=== PATIENT | female | born 1965 | race Hispanic/Latino ===

== ENCOUNTER 2019-05-31 22:38 | Emergency (ER) | payer SELFPAY ==
[2019-05-31 23:54] LABS: BASOPHILS % (AUTO) 0.3 % (0.0-5.0); EOSINOPHILS % (AUTO) 0.3 % (0.0-8.0); HEMATOCRIT 47.1 % (36-48); LYMPHOCYTES % (AUTO) 15.6 % (21.0-51.0); MEAN CORPUSCULAR HEMOGLOBIN 31.7 pg (27.0-33.0); MEAN CORPUSCULAR HGB CONC 34.1 g/dL (32.0-36.0); MEAN CORPUSCULAR VOLUME 92.9 fL (79-99); NEUTROPHILS % (AUTO) 74.8 % (40.0-77.0); NUCLEATED RED BLOOD CELLS 0.1 % (0.0-0.19); PLATELET COUNT (AUTO) 371 K/uL (130-400); RED BLOOD CELL COUNT(AUTO) 5.06 MIL/uL (4.00-5.50); RED CELL DISTRIBUTION WIDTH 12.7 % (11.0-15.5); WHITE BLOOD COUNT (AUTO) 12.9 K/uL (4.8-10.8)
[2019-06-01 00:01] LABS: CREATININE 0.9 mg/dL (0.5-1.5); POTASSIUM 3.7 mmol/L (3.5-5.1)
[2019-06-01 00:03] LABS: INR 1.28 (0.85-1.15); PARTIAL THROMBOPLASTIN TIME 34.5 SEC (26.3-35.5); PROTHROMBIN TIME 13.4 SEC (9.6-11.6)
[2019-06-01 00:07] LABS: ALBUMIN 3.8 g/dL (3.5-5.0); BILIRUBIN,DIRECT 0.2 mg/dL (0.0-0.3); BILIRUBIN,TOTAL 0.6 mg/dL (0.2-1.0); TOTAL PROTEIN, SERUM 8.8 g/dL (6.0-8.3)
[2019-06-01] MEDS ORDERED: SODIUM CHLORIDE 0.9% 1000ML 1,000 ML IV ONE (00:31)
== END 2019-06-01 01:35 | disposition home or self-care (01) ==
LOC: EDH 22:38
DX: N95.0 Postmenopausal bleeding (principal); F41.1 Generalized anxiety disorder; I10 Essential (primary) hypertension; L40.9 Psoriasis, unspecified; Z98.890 Other specified postprocedural states
CPT/HCPCS: 36415; 80048; 80076; 85025; 85610; 85730; 99284; J7030

== ENCOUNTER 2019-06-02 22:20 | Observation (INO) | payer SELFPAY ==
[~2019-06-02] VITALS: Ht 162.6 cm; Wt 104.3 kg
[2019-06-02 23:27] LABS: BASOPHILS % (AUTO) 0.6 % (0.0-5.0); EOSINOPHILS % (AUTO) 0.6 % (0.0-8.0); HEMATOCRIT 44.9 % (36-48); LYMPHOCYTES % (AUTO) 18.5 % (21.0-51.0); MEAN CORPUSCULAR HEMOGLOBIN 31.9 pg (27.0-33.0); MEAN CORPUSCULAR HGB CONC 34.4 g/dL (32.0-36.0); MEAN CORPUSCULAR VOLUME 92.7 fL (79-99); MONOCYTES % (AUTO) 9.1 % (3.0-13.0); NEUTROPHILS % (AUTO) 71.2 % (40.0-77.0); PLATELET COUNT (AUTO) 342 K/uL (130-400); RED BLOOD CELL COUNT(AUTO) 4.84 MIL/uL (4.00-5.50); RED CELL DISTRIBUTION WIDTH 12.5 % (11.0-15.5); WHITE BLOOD COUNT (AUTO) 10.5 K/uL (4.8-10.8)
[2019-06-02 23:34] LABS: CREATININE 0.8 mg/dL (0.5-1.5); POTASSIUM 4.2 mmol/L (3.5-5.1)
[2019-06-02 23:38] LABS: ALBUMIN 3.6 g/dL (3.5-5.0); BILIRUBIN,DIRECT 0.1 mg/dL (0.0-0.3); BILIRUBIN,TOTAL 0.8 mg/dL (0.2-1.0); TOTAL PROTEIN, SERUM 8.5 g/dL (6.0-8.3)
[2019-06-03] VITALS (21 sets, daily range): BP systolic 122–204; BP diastolic 60–118
[2019-06-03 02:19] LABS: APPEARANCE,URINE Cloudy (CLEAR); BILIRUBIN,URINE Small (NEGATIVE); COLOR,URINE Red (YELLOW); GLUCOSE, URINE (UA) Negative (NEGATIVE); KETONES,URINE Negative (NEGATIVE); LEUKOCYTE ESTERASE ,URINE Small (NEGATIVE); NITRATE,URINE Negative (NEGATIVE); OCCULT BLOOD,URINE Large (NEGATIVE); PH,URINE 5.5 (5.0-8.0); PROTEIN,URINE POS 2+ mg/dL (NEGATIVE); UROBILINOGEN,URINE 0.2 mg/dL (0.2-1.0)
[2019-06-03 02:54] LABS: BACTERIA,URINE Rare /HPF (None Seen); SQUAMOUS EPITHELIAL CELL,UR Rare /HPF (0-2)
[2019-06-03] MEDS ORDERED: SODIUM CHLORIDE 0.9% 1000ML 1,000 ML IV SCH (03:45)
[2019-06-03] MEDS ORDERED: SODIUM CHLORIDE 0.9% 1000ML 1,000 ML IV ONE (03:53)
[2019-06-03] MEDS ORDERED: LOSA100T58 PO (10:04)
[2019-06-03] MEDS ORDERED: LACTATED RINGERS 1000ML 1,000 ML IV ONE (12:30)
[2019-06-03] MEDS ORDERED: LIDOCAINE HCL MPF 1% 5ML VIAL ONE (12:50)
[2019-06-03] MEDS ORDERED: MIDAZOLAM HCL 1 MG/ML 2ML VIAL ONE (12:50)
[2019-06-03] MEDS ORDERED: FENTANYL CITRATE PF 50 MCG/1 ML 2ML VIAL ONE (12:51)
[2019-06-03] MEDS ORDERED: PROPOFOL 10 MG/ML 20ML VIAL IV ONE (12:51)
[2019-06-03] MEDS ORDERED: CEFAZOLIN SODIUM 1 GM VIAL ONE (13:07)
[2019-06-03] MEDS ORDERED: ONDANSETRON HCL 4 MG/2 ML VIAL ONE (13:25)
[2019-06-03] MEDS ORDERED: SIMETHICONE 80 MG TAB.CHEW PO PRN (13:45)
[2019-06-03] MEDS ORDERED: DOCUSATE SODIUM 100 MG CAP PO PRN (13:45)
[2019-06-03] MEDS ORDERED: ACETAMINOPHEN-CODEINE 300/30MG TAB PO PRN (13:45)
[2019-06-03] MEDS ORDERED: MEPERIDINE-PF 75 MG/ML SYG IM PRN (13:45)
[2019-06-03] MEDS ORDERED: ONDANSETRON HCL 4 MG/2 ML VIAL IVP PRN (13:45)
[2019-06-03] MEDS ORDERED: BISACODYL 10 MG SUPP.RECT RC PRN (13:45)
[2019-06-03] MEDS ORDERED: PROMETHAZINE HCL 25 MG/ML 1ML AMPULE IM PRN ×2 (13:45)
[2019-06-03] MEDS ORDERED: MEPERIDINE-PF 25 MG/ML SYG ONE ×2 (13:49→14:04)
--- NOTE | 2019-06-03 13:55 | NUR ---
INITIAL MET W PT AND DAUGHTER RICHELLE AND FRIEND AT BEDSIDE- LIVES W DAUGHTER RICHELLE WHO WILL PROVIDE TRANSPORT. WORKS IS INDP IN [place], HAS A WHEELCHAIR THAT SHE BORROWED A WHILE BACK AND LIKES TO SIT IN IN AT HOME- DAUGHTER AND PATIENT DISCUSSED PROS & CONS - DAUGHTER DOS NOT LIKE IT, WANTS PT TO PARTICIPATE MORE IN ACTIVITIES. PT DSIAGREES. PT IS EMPLOYED BUT UNINSURED- AYS OUT OF [facility] FOR PMD IN [place] AND WITH DR. WOODRUFF. WILL PROVIDE [facility]ITY [employer] PKT. Addendum: 06/03/19 at 1359 by MONA DERAS RN CM Amended: Links added.
--- NOTE | 2019-06-03 14:01 | NUR ---
INIITIAL PT KNOWN TO THIS CM FROM PREV ADMIT. PT W AMS, DEMENTIA, FAMILY IN [place]- WHO SIGNS FOR PT TO COME INTO FACLITY? CALL TO HELEN AT [facility] TO ANSWER THAT PROBLEM. AWAITING ANSWER FOR THE PASSR. UNSURE WHETHER THIS PATIENT WILL TRANSION TO STRATEGIC MANAGER CARE Addendum: 06/03/19 at 1403 by MONA DERAS RN CM Amended: Links added. Addendum: 06/03/19 at 1405 by MONA DERAS RN CM WRONG CHART
--- NOTE | 2019-06-03 14:05 | NUR ---
CM NOTE 1401 WRONG CHART
[2019-06-03] MEDS ORDERED: TRANEXAMIC ACID 1,000 MG in SODIUM CHLORIDE 0.9% 100 ML IV SCH (16:45)
[2019-06-03] MEDS ORDERED: PHARMACY COMMUNICATION MISC SCH (16:45)
--- NOTE | 2019-06-03 20:35 | NUR ---
ACTIVITY PATIENT WALKING IN HALLWAY. TOLERATING WELL.
--- NOTE | 2019-06-03 20:40 | NUR ---
informed dr wall of patient concen on bleeding and nervous causing bp to be elevated. new orders given .explained to patient on process of recovery. patient now calm , vital sign stable . will cont to monitor .
[2019-06-03] MEDS: LOSARTAN 100 MG TABLET PO SCH (22:00)
--- NOTE | 2019-06-03 22:10 | NUR ---
NOTE RECEIVED NOTIFICATIO THAT PATIENT IS TO BE MOVED TO [facility] THERE IS ROOM AVAILABILITY NOW. INFORMED PATIENT/FAMILY TO START PREPARING. THEY SAID A SISTER IS ON HER WAY AND WILL BE STAYING WITH HER. WILL GIVE A FEW MINUTES FOR HER TO ARRIVE.
--- NOTE | 2019-06-03 22:28 | NUR ---
NOTE CALLED [facility] TO GIVE REPORT ON PATIENT. NURSE UNAVAILABLE AT THIS TIME. LET EXTENSION NUMBER TO CALL BACK.
--- NOTE | 2019-06-03 22:48 | NUR ---
NOTE RECEIVED RETURN CALL FROM [facility] IN [facility]. REPORT GIVEN. INFORMED THAT PATIENT'S SISTER WILL BE STAYING WITH HER THE NIGHT. CAN WILL BE TAKING PATIENT VIA WHEEL CHAIR TO ROOM 116. INFORMED PATIENT OF ROOM AND NAME OF RECEIVING NURSE.
--- NOTE | 2019-06-03 23:27 | NUR ---
STATUS RECEIVED REPORT FROM ELIZABETH LANGE, PATIENT ARRIVED BY W/C TO ROOM 116 ,A/A/O, DENIES ANY CONCERNS, SL TO RIGHT HAND PATENT, 20 GAUGE Addendum: 06/03/19 at 5521 by YOON HAMLIN LVN Amended: Links added.
--- NOTE | 2019-06-03 23:51 | NUR ---
PATIENT HAS PSORIASIS Addendum: 06/03/19 at 2354 by YOON HAMLIN LVN Amended: Links added.
[2019-06-04] VITALS: BP 108/56
[2019-06-04 03:35] VITALS: BP 137/73
[2019-06-04 07:27] VITALS: BP 133/72
[2019-06-04] MEDS: LOSARTAN 100 MG TABLET PO SCH (08:14)
--- NOTE | 2019-06-04 08:25 | NUR ---
DR. WOODRUFF CALLED AND ORDER OBTAINED TO APPLY CLIMARA PATCH NOW AND THEN IN ONE WEEK. AFTER ASSESSMENT NOTED PATIENT DID NOT HAVE A CLIMARA PATCH AND ORDER READ TO APPLY IN ONE WEEK. CLIMARA PATCH WAS OBTAINED FROM PHARMACY AND WAS PLACED TO RIGH SIDE OF ABDOMEN TO RLQ.
[2019-06-04] MEDS ORDERED: ESTRADIOL 0.1 MG/24 HR PATCH (WEEKLY) TD SCH (08:30)
--- NOTE | 2019-06-04 10:00 | NUR ---
DISCHARGE INSTRUCTIONS GIVEN AND SCRIPT FOR PAIN MANAGEMENT AT HOME GIVEN AND INSTRUCTED ON DOSAGE AND FREQUENCY AT HOME. VERBALIZED UNDERSTANDING INSTRUCTIONS GIVEN.
--- NOTE | 2019-06-04 10:35 | NUR ---
PATIENT WAS TAKEN VIA W/C TO FAMILY VEHICLE AND WAS DISCHARGED TO HER MOTHER IN STABLE CONDITION. PATIENT DENIES PAIN AT THIS TIME.
[2019-06-04] MEDS ORDERED: IBUPROFEN 800 MG TAB PO SCH (13:45)
[2019-06-10] MEDS ORDERED: ESTRADIOL 0.1 MG/24 HR PATCH (WEEKLY) TD SCH (09:00)
== END 2019-06-04 10:35 | disposition home or self-care (01) ==
LOC: EDH 22:20 → EDHIP 22:21 → 3CH 06-03 08:21 → WSH 06-03 23:00
PROVIDERS: ADMIT Obstetrics & Gynecology; ATTEND Obstetrics & Gynecology
DX: N95.0 Postmenopausal bleeding (principal); I10 Essential (primary) hypertension; L40.9 Psoriasis, unspecified; Z79.899 Other long term (current) drug therapy
CPT/HCPCS: 36415; 58120; 76856; 80048; 80076; 81001; 85025; 86850; 86900; 86901; 88305; 93005; 96365; 99284; G0378 ×35; J0690; J2175 ×2; J2250; J2405; J2704; J3010; J3490 ×2; J7030 ×2; J7120